=== PATIENT | female | born 1955 | race Caucasian/White ===

== ENCOUNTER 2022-12-29 09:00 | Outpatient (NON) | payer MEDICARE, OTHER, SELFPAY | END 2022-12-29 09:01 | disposition home or self-care (01) | LOC: ANHLAB 12-30 15:55 | PROVIDERS: PCP Internal Medicine; Visit Provider Nurse Practitioner | DX: C43.59 Malignant melanoma of other part of trunk (principal) | CPT/HCPCS: 88305 ==

== ENCOUNTER 2023-01-11 10:23 | Outpatient (NON) | payer MEDICARE, OTHER, SELFPAY | END 2023-01-11 10:24 | disposition home or self-care (01) | PROVIDERS: PCP Internal Medicine; Visit Provider Nurse Practitioner | DX: C43.9 Malignant melanoma of skin, unspecified (principal) | CPT/HCPCS: 88305 ==